=== PATIENT | female | born 1970 | race Two or more races ===

== ENCOUNTER 2019-06-15 17:34 | Emergency (ER) | payer MEDICAID ==
[~2019-06-15] VITALS: Ht 162.6 cm; Wt 81.6 kg
[2019-06-15 17:40] VITALS: BP 136/78
--- NOTE | 2019-06-15 17:41 | NUR ---
ED Nurse Note: pt walked in to ER from home due to lower back pain 10/28 without trauma. pt aao x4 and ambulatory. skin clean and intact. calm and cooperative. no cardiac or pulmonary distress noted at this time. pt provided urine sample.
--- NOTE | 2019-06-15 17:46 | NUR ---
ED Nurse Note: ERPA at bedside.
[2019-06-15 17:54] LABS: APPEARANCE,URINE CLEAR; BILIRUBIN, URINE NEGATIVE (NEGATIVE); COLOR,URINE PALE YELLOW; GLUCOSE, URINE (UA) 4+ (NEGATIVE); KETONES,URINE NEGATIVE (NEGATIVE); LEUKOCYTE ESTERASE ,URINE 1+ (NEGATIVE); NITRITE,URINE NEGATIVE (NEGATIVE); PH,URINE 5 (4.5-8.0); PROTEIN,URINE NEGATIVE (NEGATIVE); UROBILINOGEN,URINE NORMAL MG/DL (0.0-1.0)
[2019-06-15] MEDS ORDERED: Omnipaque 350 100ml vial INJ PRN (18:00)
--- NOTE | 2019-06-15 18:03 | NUR ---
ED Nurse Note: ERMD at bedside.
[2019-06-15] MEDS ORDERED: cefTRIAXone 1 GM in NS 55 ML IVPB ONE (18:15)
[2019-06-15] MEDS ORDERED: Azithromycin 250mg tab ORAL ONE (18:15)
[2019-06-15 18:19] LABS: INR 0.9 (0.9-1.1)
[2019-06-15 18:23] LABS: BASOPHILS % (AUTO) 0.4 % (0.0-2.0); HEMATOCRIT 37.5 % (37.0-47.0); HEMOGLOBIN 11.7 G/DL (12.0-16.0); MEAN CORPUSCULAR VOLUME 81 FL (80-99); MONOCYTES % (AUTO) 3.3 % (1.0-10.0); NEUTROPHILS % (AUTO) 77.3 % (45.0-75.0); PLATELET COUNT 321 K/UL (150-450); RED BLOOD COUNT 4.65 M/UL (4.20-5.40); RED CELL DISTRIBUTION WIDTH 16.1 % (11.6-14.8); WHITE BLOOD COUNT 6.9 K/UL (4.8-10.8)
[2019-06-15 18:25] LABS: ANION GAP 12 mmol/L (5-15); BLOOD UREA NITROGEN 13 mg/dL (7-18); CALCIUM 9.2 MG/DL (8.5-10.1); CARBON DIOXIDE 23 MMOL/L (21-32); CHLORIDE 98 MMOL/L (98-107); CREATININE 0.7 MG/DL (0.55-1.30); POTASSIUM 4.3 MMOL/L (3.5-5.1); SODIUM 133 MMOL/L (136-145)
--- NOTE | 2019-06-15 18:30 | Emergency Room Report ---
History of Present Illness General Chief Complaint: Back Pain-No Injury Source: Family Member Present Illness HPI 49-year-old female with history of type 2 diabetes currently controlled with medication, here complaining of 1 day of sudden onset of upper back pain and shortness of breath when trying to take deep breaths. Denies any cough and congestion, URI symptoms. Complains of chills however denies fever, abdominal pain, nausea vomiting. Denies any recent travel, or coming in contact with patients who have confirmed diagnosis of coronavirus. Denies any leg swelling prior to the pleuritic chest pain. Denies any frontal chest pain with radiation. Denies any cancer history, taking any control pills, recent travel. 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 Denies any fall or injury. Denies tingling or numbness. Neurovascularly intact. Denies any unilateral generalized weakness. Denies tobacco smoke, drug use, alcohol intake. Allergies: Coded Allergies: No Known Allergies (Unverified , 06/15/19) COVID-19 Screening Contact w/high risk pt: No Recent Travel to affected area: No Experienced COVID-19 symptoms?: No Patient History Past Medical History: see triage record Past Surgical History: none Pertinent Family History: none Now: No Immunizations: UTD Reviewed Nursing Documentation: PMH: Agreed; PSxH: Agreed Nursing Documentation-PMH Past Medical History: No History, Except For Hx Diabetes: Yes Review of Systems All Other Systems: negative except mentioned in HPI Physical Exam Vital Signs Date Time Temp Pulse Resp B/P (MAP) Pulse Ox O2 Delivery O2 Flow Rate FiO2 06/15/19 17:27 97.9 114 18 136/78 (97) 97 Room Air Sp02 EP Interpretation: reviewed, normal General Appearance: no apparent distress, alert, GCS 15, non-toxic Head: normocephalic, atraumatic Eyes: bilateral eye normal inspection, bilateral eye PERRL ENT: hearing grossly normal, normal pharynx, no angioedema, normal voice Neck: full range of motion, supple/symm/no masses Respiratory: chest non-tender, no rhonchi, no respiratory distress, no retraction, no wheezing, crackles - Right lower lobe, speaking full sentences Cardiovascular #1: regular rate, rhythm, no edema Gastrointestinal: normal bowel sounds, non tender, soft, non-distended, no guarding, no rebound Rectal: deferred Genitourinary: no CVA tenderness Musculoskeletal: back normal, no calf tenderness, pelvis stable, non-tender Neurologic: alert, motor strength/tone normal, oriented x3, sensory intact, responsive, speech normal Psychiatric: judgement/insight normal, memory normal, mood/affect normal, no suicidal/homicidal ideation Skin: no rash Lymphatic: no adenopathy Medical Decision Making PA Attestation Diagnosis and treatment plans were reviewed and discussed with my supervising physician Dr. Robles Diagnostic Impression: Primary Impression: Pneumonia ER Course 49-year-old female with history of type 2 diabetes currently controlled with medication, here complaining of 1 day of sudden onset of upper back pain and shortness of breath when trying to take deep breaths. Denies any cough and congestion, URI symptoms. Complains of chills however denies fever, abdominal pain, nausea vomiting. Denies any recent travel, or coming in contact with patients who have confirmed diagnosis of coronavirus. Denies any leg swelling prior to the pleuritic chest pain. Denies any frontal chest pain with radiation. Denies any cancer history, taking any control pills, recent travel. 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 Denies any fall or injury. Denies tingling or numbness. Neurovascularly intact. Denies any unilateral generalized weakness. Denies tobacco smoke, drug use, alcohol intake. Ddx considered but are not limited to: [place], Angina, COPD, GERD, pulmonary embolism, pneumonia, Vital signs: are WNL, pt. is afebrile H&PE are most consistent with PNA ORDERS: EKG, Chest XR, cardiac labs(troponin, CBC, CMP,, BNP), influenza swab, CTA chest, azithromycin, augmentin ED INTERVENTIONS: rocephin and azithromycin DISCHARGE: At this time pt. is stable for d/c to home. Will provide printed patient care instructions, and any necessary prescriptions. Care plan and follow up instructions have been discussed with the patient prior to discharge. Take medication as directed, self quarantine, if worsening symptoms return to emergency room. Take medication as directed, follow-up with your primary doctor , you need to stay home for self quarantine due to Covid 19 precautions for 14 days EKG Diagnostic Results Rate: tachycardiac Rhythm: other - Tachycardic ST Segments: no acute changes Other Impression No acute ST changes Chest X-Ray Diagnostic Results Chest X-Ray Diagnostic Results : Chest X-Ray Ordered: Yes # of Views/Limited/Complete: 1 View Indication: Shortness of Breath EP Interpretation: Yes ELLIE Xray: Interpretation reviewed, by supervising MD, and agrees with findings. Interpretation: no consolidation, no effusion, no pneumothorax Impression: No acute disease Electronically Signed by: Dali Rodriguez PA-C CT/MRI/US Diagnostic Results CT/MRI/US Diagnostic Results : Imaging Test Ordered: CTA chest with contrast Impression FINDINGS: Limitations: Limited due to motion. Pulmonary arteries: No definite PE visualized. Aorta: No aortic dissection. Lungs: Bilateral scattered pulmonary infiltrates. Cannot exclude underlying pulmonary lesion, consider followup to ensure resolution. Pleural space: Unremarkable. No significant effusion. No pneumothorax. Heart: Unremarkable. Bones/joints: No acute fracture. Soft tissues: Unremarkable. Lymph nodes: Nonspecific mediastinal and right hilar lymph nodes. IMPRESSION: 1. Limited due to motion. 2. No definite PE visualized. 3. Bilateral scattered pulmonary infiltrates. Cannot exclude underlying pulmonary lesion, consider followup to ensure resolution. Last Vital Signs Date Time Temp Pulse Resp B/P (MAP) Pulse Ox O2 Delivery O2 Flow Rate FiO2 06/15/19 17:40 97.9 75 18 136/78 97 Room Air Disposition: HOME, SELF-CARE Condition: Stable Referrals: NOT CHOSEN IPA/,REFERRING (PCP) Patient Instructions: Community-Acquired Pneumonia, Adult, [id number] Additional Instructions: Take medication as directed, follow-up with your primary doctor, you need to stay home for self quarantine due to Covid 19 precautions for 14 days Dali Sevilla Jun 15, 2019 18:30
[2019-06-15 18:36] LABS: ALANINE AMINOTRANSFERASE 22 U/L (12-78); ALBUMIN 3.6 G/DL (3.4-5.0); ALBUMIN/GLOBULIN RATIO 0.8 (1.0-2.7); ALKALINE PHOSPHATASE 114 U/L (46-116); ASPARTATE AMINO TRANSFERASE 19 U/L (15-37); BILIRUBIN,TOTAL 0.2 MG/DL (0.2-1.0)
--- NOTE | 2019-06-15 18:39 | Diagnostic Imaging Report ---
EXAM: XR Chest, 1 View CLINICAL HISTORY: PAIN TECHNIQUE: Frontal view of the chest. COMPARISON: No relevant prior studies available. FINDINGS: Lungs: Unremarkable. No consolidation. Pleural space: Unremarkable. No pneumothorax. Heart: Unremarkable. No cardiomegaly. Mediastinum: Unremarkable. Bones/joints: Unremarkable. IMPRESSION: No acute cardiopulmonary disease.
--- NOTE | 2019-06-15 19:08 | NUR ---
HAND-OFF: Report given to MARIELA Mckeon. waiting for CT.
[2019-06-15 19:10] VITALS: BP 143/81
--- NOTE | 2019-06-15 19:10 | NUR ---
ED Nurse Note: Report received from Kenny Simmons RN. Pt is aaox4, resting in bed. No acute distress noted. Pt VSS. Will continue to monitor.
--- NOTE | 2019-06-15 20:39 | Diagnostic Imaging Report ---
EXAM: CT Angiography Chest With Intravenous Contrast CLINICAL HISTORY: PAIN TECHNIQUE: Axial computed tomographic angiography images of the chest with intravenous contrast. CTDI is 29 mGy and DLP is 226 mGy-cm. One or more of the following dose reduction techniques were used: automated exposure control, adjustment of the mA and/or kV according to patient size, use of iterative reconstruction technique. MIP reconstructed images were created and reviewed. COMPARISON: No relevant prior studies available. FINDINGS: Limitations: Limited due to motion. Pulmonary arteries: No definite PE visualized. Aorta: No aortic dissection. Lungs: Bilateral scattered pulmonary infiltrates. Cannot exclude underlying pulmonary lesion, consider followup to ensure resolution. Pleural space: Unremarkable. No significant effusion. No pneumothorax. Heart: Unremarkable. Bones/joints: No acute fracture. Soft tissues: Unremarkable. Lymph nodes: Nonspecific mediastinal and right hilar lymph nodes. IMPRESSION: 1. Limited due to motion. 2. No definite PE visualized. 3. Bilateral scattered pulmonary infiltrates. Cannot exclude underlying pulmonary lesion, consider followup to ensure resolution.
[2019-06-15] MEDS ORDERED: ZITHROMAX250 MG ORAL (20:48)
[2019-06-15] MEDS ORDERED: AUGMENTIN 875-1 EAC1 ORAL (20:48)
[2019-06-15 21:05] VITALS: BP 135/82
--- NOTE | 2019-06-15 21:05 | NUR ---
ER DISCHARGE NOTE: Patient is cleared to be discharged per ERMD, pt is aox4, on room air, with stable vital signs. pt was given dc and prescription instructions, pt was able to verbalize understanding, pt id band and iv site removed without complications. pt is able to ambulate with steady gait. pt took all belongings.
== END 2019-06-15 21:05 | disposition home or self-care (01) ==
LOC: EDBD 17:34 → EMR 17:53
DX: J18.9 Pneumonia, unspecified organism (principal); E11.9 Type 2 diabetes mellitus without complications
CPT/HCPCS: 36415; 71045; 71275; 80053; 81003; 83880; 84484; 85025; 85610; 85730; 86710; 93005; 96365; J0696; J7030; Q0144; Q9967; Z7502; 99284